=== PATIENT | male | born 1945 | race Caucasian/White ===

== ENCOUNTER 2019-12-05 19:01 | Emergency (ER) | payer OTHER ==
[~2019-12-05] VITALS: Ht 170.2 cm; Wt 77.1 kg
[2019-12-05 19:15] VITALS: Ht 170.2 cm; Wt 77.1 kg
[2019-12-05 22:40] VITALS: BP 167/82
== END 2019-12-05 22:40 | disposition home or self-care (01) ==
LOC: ED 19:01
DX: S43.085A Other dislocation of left shoulder joint, initial encounter (principal); S01.112A Laceration without foreign body of left eyelid and periocular area, initial encounter; I10 Essential (primary) hypertension; H91.92 Unspecified hearing loss, left ear; E11.9 Type 2 diabetes mellitus without complications; W01.0XXA Fall on same level from slipping, tripping and stumbling without subsequent striking against object, initial encounter; Y93.89 Activity, other specified; Y92.89 Other specified places as the place of occurrence of the external cause; Y99.8 Other external cause status
CPT/HCPCS: 90715; J2001; J3010; J3490; J7030; Q0092